=== PATIENT | female | born 1940 | race Caucasian/White ===

== ENCOUNTER 2016-03-02 01:17 | Emergency (ER) | payer MEDICARE ==
--- NOTE | 2016-03-02 01:57 | ED.PDOC ---
History of Present Illness - General Chief Complaint: GI Problem Stated Complaint: constipation Time Seen by Provider: 03/02/16 01:44 Information Source: patient, RN notes reviewed, Vital Signs reviewed Exam Limitations: no limitations - History of Present Illness Initial Comments: This 75 y/o female has not had a bowel movement in 7 days. She has very hard stool and has had to manually remove it. She feels like she did when she had a small bowel obstruction a month ago, except worse. She is having severe abdominal pain. She is unable to describe the quality. Additionally, Patient has not taken her Plavix because she has run out of it and has not felt like going to pick it up at the pharmacy. Abdominal Pain Onset Location: generalized abdomen Pain Radiation: no radiation Quality: severe, waxing/waning Timing/Duration: 1 week, getting worse Improving Factors: nothing Worsening Factors: nothing Associated Symptoms: back pain Review of Systems - Review of Systems Constitutional: States: no symptoms reported EENTM: States: no symptoms reported Respiratory: States: no symptoms reported Cardiology: States: no symptoms reported Gastrointestinal/Abdominal: States: abdominal pain, constipation Genitourinary: States: no symptoms reported Musculoskeletal: States: muscle pain, muscle stiffness Skin: States: no symptoms reported Neurological: States: no symptoms reported Endocrine: States: no symptoms reported Hematologic/Lymphatic: States: no symptoms reported All other Systems: Reviewed and Negative Past Medical History (General) - Patient Medical History Hx Cardiac Disorders: Yes - STENTS IN HEART,, Hx Congestive Heart Failure: No Hx Hypertension: Yes Hx Diabetes: No Hx Gastroesophageal Reflux: - diverticuli Hx Cancer: Yes - BONE Surgical History: Hysterectomy - Vaccination History Hx Tetanus, Diphtheria Vaccination: No Hx Influenza Vaccination: Yes Hx Pneumococcal Vaccination: Yes - Social History Hx Tobacco Use: No Hx Chewing Tobacco Use: No Hx Alcohol Use: No Hx Substance Use: No Hx Substance Use Treatment: No Hx Depression: No Feels Threatened In Home Enviroment: No Feels Threatened In a Relationship: No Hx Physical Abuse: No Hx Emotional Abuse: No Hx Suspected Abuse: No - Female History Patient is a Female of Child Bearing Age (10 -59 yrs old): No Patient : No Family Medical History - Family History Mother Family History: Unknown Living Status: Unknown Physical Exam - Physical Exam General Appearance: Alert, Anxious, Obvious distress, Unkempt Eyes, Ears, Nose, Throat Exam: normal ENT inspection Respiratory: lungs clear, normal breath sounds, no respiratory distress, no accessory muscle use Cardiovascular/Chest: regular rate, rhythm, no edema, no gallop, no murmur Gastrointestinal/Abdominal: soft, no organomegaly, no pulsatile mass, abnormal bowel sounds - decreased, tenderness - generalized Rectal Exam: normal exam, normal rectal tone, other - no stool impaction Back Exam: no vertebral tenderness Extremity: normal range of motion Neurologic: alert, normal mood/affect, oriented x 3 Skin Exam: normal color, warm/dry Lymphatic: no adenopathy Progress - Progress Progress: 03/02/16 04:12 Patient was given a Fleets Enema with minimal response. She will be give Magnesium citrate. She is to follow up with her PCP if symptoms persist or ED if symptoms worsen. - Results/Orders Results/Orders: 03/02/16 03/02/16 01:26 03:13 Temperature 97.3 F L Pulse Rate [ 82 83 right] Respiratory 18 18 Rate Blood Pressure 115/66 158/73 [right] O2 Sat by Pulse 96 95 Oximetry 03/02/16 02:00 Hold Metformin x 48Hrs [id number] Laboratory Results WBC 8.9 K/mm3 (4.8-10.8) 03/02/16 02:10 RBC 4.37 M/mm3 (4.20-5.40) 03/02/16 02:10 Hgb 12.0 gm/dL (12.0-16.0) 03/02/16 02:10 Hct 37.3 % (36.0-47.0) 03/02/16 02:10 MCV 85.4 fl (81.0-99.0) 03/02/16 02:10 MCH 27.5 pg (27.0-31.0) 03/02/16 02:10 MCHC 32.2 g/dL (33.0-37.0) L 03/02/16 02:10 RDW 15.2 % (11.5-14.5) H 03/02/16 02:10 Plt Count 293 K/mm3 (130-400) 03/02/16 02:10 MPV 8.6 fl (7.40-10.4) 03/02/16 02:10 Absolute Neuts (auto) 6.70 K/uL (1.8-6.8) 03/02/16 02:10 Absolute Lymphs (auto) 1.50 K/uL (1.0-3.4) 03/02/16 02:10 Absolute Monos (auto) 0.50 K/uL (0.2-0.8) 03/02/16 02:10 Absolute Eos (auto) 0.10 K/uL (0.0-0.4) 03/02/16 02:10 Absolute Basos (auto) 0.10 K/uL (0.0-0.1) 03/02/16 02:10 Neutrophils % 75.7 % (42.0-78.0) 03/02/16 02:10 Lymphocytes % 17.2 % (20.0-50.0) L 03/02/16 02:10 Monocytes % 5.4 % (2.0-9.0) 03/02/16 02:10 Eosinophils % 0.7 % (1.0-5.0) L 03/02/16 02:10 Basophils % 1.0 % (0.0-2.0) 03/02/16 02:10 Sodium 139 mmol/L (135-145) 03/02/16 02:10 Potassium 4.1 mmol/L (3.6-5.0) 03/02/16 02:10 Chloride 105 mmol/L (101-111) 03/02/16 02:10 Carbon Dioxide 26 mmol/L (21-31) 03/02/16 02:10 Anion Gap 12.1 (12-18) 03/02/16 02:10 BUN 23 mg/dL (7-18) H 03/02/16 02:10 Creatinine 1.26 mg/dL (0.6-1.3) 03/02/16 02:10 BUN/Creatinine Ratio 18.3 (10-20) 03/02/16 02:10 Random Glucose 116 mg/dL (70-105) H 03/02/16 02:10 Serum Osmolality 282.2 mOsm/L (275-295) 03/02/16 02:10 Calcium 8.9 mg/dL (8.4-10.2) 03/02/16 02:10 Total Bilirubin 0.7 mg/dL (0.2-1.0) 03/02/16 02:10 AST 28 IU/L (10-42) 03/02/16 02:10 ALT 32 IU/L (10-60) 03/02/16 02:10 Alkaline Phosphatase 115 IU/L (42-121) 03/02/16 02:10 Serum Total Protein 7.7 gm/dL (6.4-8.2) 03/02/16 02:10 Albumin 4.3 g/dl (3.2-5.5) 03/02/16 02:10 Globulin 3.4 gm/dL (2.3-3.5) 03/02/16 02:10 Albumin/Globulin Ratio 1.3 (1.1-1.9) 03/02/16 02:10 Urine Color Yellow (Yellow) 03/02/16 02:20 Urine Appearance Clear (Clear) 03/02/16 02:20 Urine pH 6.0 (4.5-7.8) 03/02/16 02:20 Ur Specific [place] 1.025 (1.005-1.030) 03/02/16 02:20 Urine Protein Trace mg/dL 03/02/16 02:20 Urine Glucose (UA) Negative mg/dL (Negative) 03/02/16 02:20 Urine Ketones 40 mg/dL (NEGATIVE) H 03/02/16 02:20 Urine Blood Negative (Negative) 03/02/16 02:20 Urine Nitrite Negative 03/02/16 02:20 Urine Bilirubin Small (NEGATIVE) H 03/02/16 02:20 Urine Urobilinogen 0.2 mg/dL (0.2-1.0) 03/02/16 02:20 Ur Leukocyte Esterase Negative (Negative) 03/02/16 02:20 Urine RBC 0 /hpf 03/02/16 02:20 Urine WBC 1-3 /hpf 03/02/16 02:20 Ur Epithelial Cells 5-10 /hpf 03/02/16 02:20 Urine Bacteria Rare 03/02/16 02:20 Hyaline Casts 20-30 /lpf 03/02/16 02:20 Urine Mucus Small 03/02/16 02:20 - EKG/XRAY/CT CT: Abd/Pelvis: No obstruction CT Ordered: Yes CT Interpretation Call Back: No - Report sent CT Interpretation Call Back Date: 03/02/16 CT Interpretation Call Back Time: 03:00 Departure - Departure Clinical Impression: Constipation Qualifiers: Constipation type: unspecified constipation type Qualifier Code: (K59.00) Constipation, unspecified Time of Disposition: 04:14 Disposition: Discharge to Home or Self Care Condition: Fair Departure Forms: ED Discharge - Pt. Copy, Patient Portal Self Enrollment Instructions: Constipation, DI for Constipation Diet: other - high fiber diet Home Medications: Ambulatory Orders Clopidogrel Bisulfate [Plavix] 75 mg PO DAILY 08/01/14
--- NOTE | 2016-03-02 02:58 | CT ---
EXAM DESCRIPTION: CT ABDOMEN PELVIS WITH IV CONTRAST 03/02/2016 2:43 AM CLINICAL HISTORY: 75 y/o , F, abdominal pain COMPARISON: CT abdomen and pelvis with contrast January 31, 2016 TECHNIQUE: Following the administration of intravenous contrast, volumetric CT acquisition was performed through the abdomen and pelvis. Images in the axial and coronal planes were presented for interpretation FINDINGS: The visualized portions of the lung bases are clear. The cardiomediastinal structures are within normal limits. Within the upper abdomen, the liver and spleen are normal in size and morphology. The gallbladder is surgically absent. The intra/extrahepatic biliary tree is normal in appearance. The pancreas and adrenal glands are normal. The right kidney is normal in size. The right ureter is normal in course and caliber. There is a 1.6 cm cyst along the lower pole of the right kidney as well as a 8 mm cyst. There are no right renal calculi are distal obstructing stones. The left kidney is normal in size. The left ureter is normal in course and caliber. There are no left renal calculi or distal obstructing stones. There is no evidence of hydronephrosis/ hydroureter. The stomach and small intestines are within normal limits without evidence of bowel dilation or wall thickening. The appendix is well visualized and normal, best seen on axial image 70 posterior to the cecum. The colon is stool filled and unremarkable. There is laxity of the pelvic floor musculature with downward displacement of the bladder and rectum by a up to 4 cm below the level of the pubococcygeal line. The bladder and rectum are otherwise stable in appearance. The uterus and ovaries are surgically absent. There are no pathologically enlarged inguinal, retroperitoneal, portacaval, or mesenteric lymph nodes. The soft tissue structures of the abdominal wall are normal. There are multilevel degenerative changes throughout the lumbar spine, most pronounced at the L5/S1 level with disc space narrowing and facet hypertrophy. There is left proximal femoral fixation hardware noted. There are moderate vascular calcifications throughout the abdominal aorta and its primary branches. Limited evaluation of the venous structures demonstrates no gross abnormalities. IMPRESSION: 1. No acute intra-abdominal process or evidence of residual bowel obstruction. 2. Status post cholecystectomy and hysterectomy. 3. Stable bladder and rectal prolapse. 4. Degenerative changes of the lumbar spine. Electronically signed by: Alice Mason MD 03/02/2016 02:55
[2016-03-02 03:14] VITALS: O2SAT 95
[2016-03-02] MEDS ORDERED: SODIUM PHOS/BIPHOS ENEMA ADULT 133 ML BTTL PR ONE (03:16)
[2016-03-02] MEDS ORDERED: MAGNESIUM CITRATE 300 ML BTTL ONE (04:05)
[2016-03-02] MEDS ORDERED: CLOPIDOGREL 75 MG TAB PO ONE (04:09)
[2016-03-02] MEDS ORDERED: MAGNESIUM CITRATE 300 ML BTTL PO ONE (04:10)
[2016-03-02 04:30] VITALS: BP 128/79; TEMP 98.1
== END 2016-03-02 04:30 | disposition home or self-care (01) ==
LOC: ER 01:17
DX: K59.00 Constipation, unspecified (principal); I10 Essential (primary) hypertension; Z85.830 Personal history of malignant neoplasm of bone; K57.90 Diverticulosis of intestine, part unspecified, without perforation or abscess without bleeding; Z79.02 Long term (current) use of antithrombotics/antiplatelets; Z79.82 Long term (current) use of aspirin; Z79.899 Other long term (current) drug therapy

== ENCOUNTER 2017-08-11 20:02 | Emergency (ER) | payer MEDICARE, MEDICAID ==
[2017-08-11] MEDS ORDERED: ASPIRIN TABLET 325 MG TAB PO ONE (20:34)
[2017-08-11 20:36] VITALS: O2SAT 97
--- NOTE | 2017-08-11 20:51 | RAD ---
EXAM DESCRIPTION: Chest,1 View CLINICAL HISTORY:77 years Female, chest pain Comparison: None FINDINGS: No focal lung consolidation. Atherosclerotic vascular calcifications. No pleural effusion. No pneumothorax. Cardiac and mediastinal silhouette is unremarkable. No acute osseous abnormality. Soft tissues are unremarkable. IMPRESSION: No acute findings. No focal lung consolidation. Electronically signed by: Carlos Antonio MD 08/11/2017 8:50 PM CDT
--- NOTE | 2017-08-12 02:26 | ED.PDOC ---
History of Present Illness - General Chief Complaint: Chest Pain/OH Stated Complaint: Chest Pain Time Seen by Provider: 08/11/17 20:23 Source: patient, family Exam Limitations: no limitations - History of Present Illness Initial Comments: the patient is a 77-year-old female presenting to the emergency room with her daughter secondary to back pain and abdominal pain as well as some chest pain and generalized weakness that has been going on for about a year. The patient apparently has a history of lymphoma distantly. She also has a history of significant peripheral arterial disease and some known coronary artery disease. The chest pain. To be a more diffuse type chest pain or other than a central chest pain. It is not severely worse with movement. It is not worse with lying back or sitting forward. She is actually not having any chest pain at the moment. She did have some little while ago. Her daughter brought her appear due to this isn't her chronic back pain. Patient has known peripheral arterial disease of the left leg. 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 It appears she has some left lower extremity sciatica.additionally appears that today is the first time that the daughter has actually seen the mother in 2 years.additionally the patient and her daughter report that only hydrocodone works for her pain that the tramadol and codeine did not. Timing/Duration: unsure Severity: mild Improving Factors: nothing Worsening Factors: nothing Allergies/Adverse Reactions: Allergies Codeine Adverse Reaction (Mild, Verified 08/11/17 20:38) Vomitting Ketorolac Tromethamine [From Toradol] Adverse Reaction (Mild, Verified 08/11/17 20:38) Vomitting Home Medications: Ambulatory Orders Clopidogrel Bisulfate [Plavix] 75 mg PO DAILY 08/01/14 predniSONE [Prednisone] 20 mg PO DAILY #5 tab 08/12/17 Review of Systems - Review of Systems Constitutional: States: malaise, weakness - generalized EENTM: States: no symptoms reported Respiratory: States: no symptoms reported Cardiology: States: chest pain Gastrointestinal/Abdominal: States: abdominal pain, nausea Genitourinary: States: no symptoms reported Musculoskeletal: States: see HPI Skin: States: no symptoms reported Neurological: States: anxiety, paresthesia Endocrine: States: no symptoms reported All other Systems: No Change from Baseline Past Medical History (General) - Patient Medical History Hx Seizures: No Hx Stroke: No Hx Dementia: No Hx Asthma: No Hx of COPD: No Hx Cardiac Disorders: Yes - Hx of cardiac stents Hx Congestive Heart Failure: No Hx Pacemaker: No Hx Hypertension: Yes Hx Thyroid Disease: No Hx Diabetes: No Hx Gastroesophageal Reflux: Yes Hx Renal Disease: No Hx Cancer: Yes - lymphoma Hx of HIV: No Hx Hepatitis C: No Hx MRSA: No Surgical History: cancer surgery, cholecystectomy, Hysterectomy - Vaccination History Hx Tetanus, Diphtheria Vaccination: No - Unknown Hx Influenza Vaccination: Yes Hx Pneumococcal Vaccination: Yes Immunizations Up to Date: No - Social History Hx Tobacco Use: No Hx Chewing Tobacco Use: No Hx Alcohol Use: No Hx Substance Use: No Hx Substance Use Treatment: No Hx Depression: Yes - Unsure of depression medication taking Feels Threatened In Home Enviroment: No Feels Threatened In a Relationship: No Hx Physical Abuse: No Hx Emotional Abuse: No Hx Suspected Abuse: No - Activities of Daily Living Hospice Agency (if applicable):: None - Female History Patient is a Female of Child Bearing Age (10 -59 yrs old): No Patient : No - Triage Comment ED Triage Comment: Pt states that she has been having intermittent chest pain x2 days. Pt also complains of abdominal pain and swelling. Pt's daughter states that she was seen in the clinic today and was scheduled for a cardiac work up tomorrow but was told to come to the ER should she have any chest pain before then. Family Medical History - Family History Mother Family History: Unknown Living Status: Unknown Physical Exam - Physical Exam General Appearance: Alert, Anxious, No apparent distress Eye Exam: bilateral normal Ears, Nose, Throat: normal ENT inspection, normal pharynx Neck: non-tender, supple Respiratory: lungs clear, normal breath sounds, no respiratory distress, no accessory muscle use Cardiovascular/Chest: normal peripheral pulses, no edema, tachycardia - mild Peripheral Pulses: radial,right: 2+, radial,left: 2+, dorsalis pedis,right: 1+, dorsalis pedis,left: 1+ Gastrointestinal/Abdominal: non tender, soft Rectal Exam: deferred Back Exam: normal inspection, no CVA tenderness Extremity: normal range of motion, non-tender, normal inspection, no pedal edema , normal capillary refill Neurologic: stippler II-XII nml as tested, alert, normal mood/affect, oriented x 3 Skin Exam: normal color Progress - Progress Progress: 08/12/17 02:30 the patient is a 77-year-old female brought in by her daughter secondary to symptoms of generalized progressive pain and weakness over the last year. Repeat cardiac and muscle enzymes are negative. EKG fails show definitive evidence of acute ischemia. The patient does have significant DJD of the lumbar spine that seems to be causing the bulk of her discomfort. She does need to follow up with her primary care doctor for continuation of workup and treatment for this. She needs to keep herself well hydrated. The patient may be a candidate for rehabilitation for generalized deconditioning. She needs to keep follow-up with her primary care doctor early next week. I am going to write the patient for 5 days of oral prednisone to help reduce inflammation of her low back. She is receiving the first dose tonight. - Results/Orders Results/Orders: Laboratory Tests 08/11/17 08/11/17 08/11/17 20:33 20:47 20:52 WBC 11.2 H RBC 4.96 Hgb 13.2 Hct 40.1 MCV 80.9 L MCH 26.5 L MCHC 32.8 L RDW 14.3 Plt Count 336 MPV 7.7 Absolute Neuts (auto) 8.90 H Absolute Lymphs (auto) 1.40 Absolute Monos (auto) 0.70 Absolute Eos (auto) 0.10 Absolute Basos (auto) 0.10 Neutrophils % 79.4 H Lymphocytes % 12.8 L Monocytes % 5.9 Eosinophils % 1.0 Basophils % 0.9 PT INR PTT (SP) D-Dimer, Quantitative Sodium 137 Potassium 3.6 Chloride 103 Carbon Dioxide 27 Anion Gap 10.6 L BUN 21 H Creatinine 1.27 BUN/Creatinine Ratio 16.5 Random Glucose 137 H Serum Osmolality 278.9 Lactic Acid Calcium 9.1 Magnesium 1.9 Total Bilirubin 0.4 AST 18 ALT 15 Alkaline Phosphatase 84 Creatine Kinase 33 CK-MB (CK-2) 0.7 CK-MB (CK-2) % Not Reportable Troponin I < 0.02 B-Natriuretic Peptide 14.9 Serum Total Protein 7.0 Albumin 3.9 Globulin 3.1 Albumin/Globulin Ratio 1.3 Amylase 82 TSH 3.94 Urine Color Urine Appearance Urine pH Ur Specific [place] Urine Protein Urine Glucose (UA) Urine Ketones Urine Blood Urine Nitrite Urine Bilirubin Urine Urobilinogen Ur Leukocyte Esterase Urine RBC Urine WBC Ur Epithelial Cells Urine Bacteria Urine Mucus Urine Opiates Screen Negative Urine Barbiturates Negative Ur Phencyclidine Scrn Negative U Amphetamin/Meth Scrn Negative U Benzodiazepines Scrn Positive H U Cocaine Metab Screen Negative U Cannabinoids Screen Negative 08/11/17 08/11/17 08/11/17 20:52 20:52 23:15 WBC RBC Hgb Hct MCV MCH MCHC RDW Plt Count MPV Absolute Neuts (auto) Absolute Lymphs (auto) Absolute Monos (auto) Absolute Eos (auto) Absolute Basos (auto) Neutrophils % Lymphocytes % Monocytes % Eosinophils % Basophils % PT 9.3 INR 0.93 PTT (SP) 21.9 D-Dimer, Quantitative 0.54 H* Sodium Potassium Chloride Carbon Dioxide Anion Gap BUN Creatinine BUN/Creatinine Ratio Random Glucose Serum Osmolality Lactic Acid 2.1 Calcium Magnesium Total Bilirubin AST ALT Alkaline Phosphatase Creatine Kinase CK-MB (CK-2) CK-MB (CK-2) % Troponin I B-Natriuretic Peptide Serum Total Protein Albumin Globulin Albumin/Globulin Ratio Amylase TSH Urine Color Yellow Urine Appearance Clear Urine pH 5.5 Ur Specific [place] >= 1.030 Urine Protein Trace Urine Glucose (UA) Negative Urine Ketones Negative Urine Blood Negative Urine Nitrite Negative Urine Bilirubin Negative Urine Urobilinogen 0.2 Ur Leukocyte Esterase Trace H Urine RBC 1-3 Urine WBC 3-5 H Ur Epithelial Cells 1-3 Urine Bacteria 2+ H Urine Mucus Moderate Urine Opiates Screen Urine Barbiturates Ur Phencyclidine Scrn U Amphetamin/Meth Scrn U Benzodiazepines Scrn U Cocaine Metab Screen U Cannabinoids Screen 08/12/17 00:58 WBC RBC Hgb Hct MCV MCH MCHC RDW Plt Count MPV Absolute Neuts (auto) Absolute Lymphs (auto) Absolute Monos (auto) Absolute Eos (auto) Absolute Basos (auto) Neutrophils % Lymphocytes % Monocytes % Eosinophils % Basophils % PT INR PTT (SP) D-Dimer, Quantitative Sodium Potassium Chloride Carbon Dioxide Anion Gap BUN Creatinine BUN/Creatinine Ratio Random Glucose Serum Osmolality Lactic Acid Calcium Magnesium Total Bilirubin AST ALT Alkaline Phosphatase Creatine Kinase 27 CK-MB (CK-2) 0.7 CK-MB (CK-2) % Not Reportable Troponin I < 0.02 B-Natriuretic Peptide Serum Total Protein Albumin Globulin Albumin/Globulin Ratio Amylase TSH Urine Color Urine Appearance Urine pH Ur Specific [place] Urine Protein Urine Glucose (UA) Urine Ketones Urine Blood Urine Nitrite Urine Bilirubin Urine Urobilinogen Ur Leukocyte Esterase Urine RBC Urine WBC Ur Epithelial Cells Urine Bacteria Urine Mucus Urine Opiates Screen Urine Barbiturates Ur Phencyclidine Scrn U Amphetamin/Meth Scrn U Benzodiazepines Scrn U Cocaine Metab Screen U Cannabinoids Screen chest x-ray shows no evidence of acute pathology. EKG shows sinus tachycardia at 111 beats a minute. Q wave in lead 3. Inverted T wave in V2. Normal QT interval. Departure - Departure Clinical Impression: Chronic low back pain with left-sided sciatica Qualifiers: Back pain laterality: left Qualified Code(s): M54.42 - Lumbago with sciatica, left side; G89.29 - Other chronic pain Disposition: Discharge to Home or Self Care Condition: Fair Departure Forms: ED Discharge - Pt. Copy, Patient Portal Self Enrollment Instructions: DI for Atypical Chest Pain Diet: regular diet Activity: increase activity as tolerated Prescriptions: predniSONE [Prednisone] 20 mg PO DAILY #5 tab Home Medications: Ambulatory Orders Clopidogrel Bisulfate [Plavix] 75 mg PO DAILY 08/01/14 predniSONE [Prednisone] 20 mg PO DAILY #5 tab 08/12/17 Additional Instructions: the patient is a 77-year-old female brought in by her daughter secondary to symptoms of generalized progressive pain and weakness over the last year. Repeat cardiac and muscle enzymes are negative. EKG fails show definitive evidence of acute ischemia. The patient does have significant DJD of the lumbar spine that seems to be causing the bulk of her discomfort. She does need to follow up with her primary care doctor for continuation of workup and treatment for this. She needs to keep herself well hydrated. The patient may be a candidate for rehabilitation for generalized deconditioning. She needs to keep follow-up with her primary care doctor early next week. I am going to write the patient for 5 days of oral prednisone to help reduce inflammation of her low back. She is receiving the first dose tonight.
[2017-08-12] MEDS ORDERED: predniSONE 20 MG TAB PO ONE (02:35)
[2017-08-12] MEDS ORDERED: CYCLOBENZAPRINE HCL 10 MG TAB PO ONE (02:35)
[2017-08-12 02:46] VITALS: BP 123/72; TEMP 97.5
== END 2017-08-12 02:50 | disposition home or self-care (01) ==
LOC: ER 20:02
DX: M54.42 Lumbago with sciatica, left side (principal); G89.29 Other chronic pain; R07.9 Chest pain, unspecified; R00.0 Tachycardia, unspecified; R10.9 Unspecified abdominal pain; R53.1 Weakness; F32.9 Major depressive disorder, single episode, unspecified; I10 Essential (primary) hypertension; K21.9 Gastro-esophageal reflux disease without esophagitis; Z95.5 Presence of coronary angioplasty implant and graft; Z90.49 Acquired absence of other specified parts of digestive tract; Z85.72 Personal history of non-Hodgkin lymphomas; Z88.8 Allergy status to other drugs, medicaments and biological substances; Z88.5 Allergy status to narcotic agent; Z79.899 Other long term (current) drug therapy
CPT/HCPCS: 36415; 71045; 80053; 80307; 81001; 82150; 82550; 82553; 83605; 83735; 83880; 84443; 84484; 85025; 85379; 85610; 85730; 93005; J7512

== ENCOUNTER 2020-01-12 14:10 | Emergency (ER) | payer MEDICARE, MEDICAID ==
[2020-01-12] MEDS ORDERED: MORPHINE SULFATE INJ 10 MG/ML VIAL IV ONE (14:21)
[2020-01-12] MEDS ORDERED: ONDANSETRON INJ 4 MG/2 ML VIAL IV ONE (14:21)
--- NOTE | 2020-01-12 14:26 | ED.PDOC ---
History of Present Illness - General Time Seen by Provider: 01/12/20 14:13 Source: patient, RN notes reviewed, Vital Signs reviewed, old records Exam Limitations: other - Pt is a poor historian - History of Present Illness Initial Comments: Pt is a 79 yo female with PMH of dementia, CAD and peripheral vascular disease who presents to ED for 1 week h/o worsening left leg pain from the left knee to left foot. Pain became worse today so called EMS to come to ED for evaluation. Pt reports PAD of LLE that has had to be "cleaned out 3 times" by Dr. Sesay in [place]. She denies any recent fall or trauma. Allergies/Adverse Reactions: Allergies NO KNOWN ALLERGY Allergy (Verified 01/12/20 15:15) Home Medications: Ambulatory Orders Clopidogrel Bisulfate [Plavix] 75 mg PO DAILY 08/01/14 predniSONE [Prednisone] 20 mg PO DAILY #5 tab 08/12/17 Review of Systems - Review of Systems Constitutional: Denies: chills, fever EENTM: Denies: nose congestion, throat pain Respiratory: Denies: cough, short of breath Cardiology: Denies: chest pain, edema, palpitations Gastrointestinal/Abdominal: Denies: abdominal pain, diarrhea, nausea Genitourinary: Denies: dysuria Musculoskeletal: States: see HPI Skin: States: change in color - blue discoloration to left foot Neurological: Denies: headache All other Systems: Reviewed and Negative Past Medical History (General) - Patient Medical History Hx Seizures: No Hx Stroke: No Hx Dementia: No Hx Asthma: No Hx of COPD: No Hx Cardiac Disorders: Yes - Hx of cardiac stents Hx Congestive Heart Failure: No Hx Pacemaker: No Hx Hypertension: Yes Hx Thyroid Disease: No Hx Diabetes: No Hx Gastroesophageal Reflux: Yes Hx Renal Disease: No Hx Cancer: Yes - lymphoma Hx of HIV: No Hx Hepatitis C: No Hx MRSA: No - Vaccination History Hx Tetanus, Diphtheria Vaccination: No - Unknown Hx Influenza Vaccination: Yes Hx Pneumococcal Vaccination: Yes - Social History Hx Tobacco Use: No Hx Chewing Tobacco Use: No Hx Alcohol Use: No Hx Substance Use: No Hx Substance Use Treatment: No Hx Depression: Yes - Unsure of depression medication taking Hx Physical Abuse: No Hx Emotional Abuse: No Hx Suspected Abuse: No - Female History Patient : No Family Medical History - Family History Mother Family History: Unknown Living Status: Unknown Physical Exam - Physical Exam General Appearance: Alert, Other - Mild distress due to pain Neck: non-tender, full range of motion, supple Cardiovascular/Respiratory: regular rate, rhythm, normal breath sounds, no respiratory distress Gastrointestinal/Abdominal: non-tender, no hernia Thigh/Hip: normal inspection, non-tender Leg: normal inspection, non-tender Knee: normal inspection, non-tender, no evidence of injury Mental Status: alert Comments: The left foot has a blueish discoloration to the midfoot and toes. Faint DP pulse palpated. Unable to palpate posterior tibial pulse. No calf tenderness. Progress - Progress Progress: 01/12/20 15:21 D/W radiology. Pt GFR is 24, too low for IV contrast. Unable to get CT with contrast. US not available at this facility at this time. 01/12/20 15:41 Unable to fing left DP or PT pulse with bedside US. We are unable to get CTA LLE due to low GFR and US is unavailble. Will plan to transfer for additional testing and treatment of peripheral arterial occlusion of LLE. Will start Heparin. Son is at bedside and last had surgery for PAD of LLE for similar symptoms [address] Sesay at [place]. He states her pain has been increasing over the past week and noticed blueish colored foot past 2 days. He is usually able to palpate a pulse in left foot, but was unable to today so called EMS. 01/12/20 17:26 Multiple facilities contacted in area that have no capacity. I d/w Dr. Knight, vascular surgeon in [place] and transfer line will attempt to find bed at [facility] or [facility]. 01/12/20 19:[address] Knight [address] [facility]. Pt and family notified. - Results/Orders Results/Orders: CTA LEFT LEG--->Unable to perform due to CKD 01/12/20 15:46 Heparin Sodium (Porcine) [Heparin Sodium] See Protocol SUBCU PRN PRN 01/12/20 16:00 Heparin Premix [Heparin/D5w 25,000U/500ML] 25,000 units Premix Bag 1 bag IVS PRN Laboratory Results - last 24 hr 01/12/20 01/12/20 01/12/20 14:21 15:10 15:49 WBC 12.6 H RBC 4.34 Hgb 13.1 Hct 38.7 MCV 89.0 MCH 30.1 MCHC 33.8 RDW 15.4 H Plt Count 286 MPV 9.1 Absolute Neuts (auto) 10.70 H Absolute Lymphs (auto) 1.10 Absolute Monos (auto) 0.60 Absolute Eos (auto) 0.00 Absolute Basos (auto) 0.00 Neutrophils % 85.2 H Lymphocytes % 9.1 L Monocytes % 5.1 Eosinophils % 0.2 L Basophils % 0.4 PT 10.6 INR 1.07 PTT (SP) 23.1 Sodium 140 Potassium 4.9 Chloride 106 Carbon Dioxide 16 L Anion Gap 22.9 H BUN 38 H Creatinine 1.88 H BUN/Creatinine Ratio 20.2 H Random Glucose 146 H Serum Osmolality 291.1 Calcium 10.6 H Total Bilirubin 0.7 AST 95 H ALT 49 Alkaline Phosphatase 86 Serum Total Protein 7.6 Albumin 3.8 Globulin 3.8 H Albumin/Globulin Ratio 1.0 L Departure - Departure Clinical Impression: Peripheral artery occlusion, Left leg pain Dementia Qualifiers: Dementia type: unspecified type Dementia behavioral disturbance: without behavioral disturbance Qualified Code(s): F03.90 - Unspecified dementia without behavioral disturbance Chronic kidney disease (CKD) Qualifiers: Chronic kidney disease stage: unspecified stage Qualified Code(s): N18.9 - Chronic kidney disease, unspecified Time of Disposition: 19:02 Disposition: Transfer to Hospital Condition: Fair Referrals: MELY FARRIS IV, MINGLER OPERATOR [Primary Care Provider] - 1-2 Weeks Home Medications: Ambulatory Orders Clopidogrel Bisulfate [Plavix] 75 mg PO DAILY 08/01/14 predniSONE [Prednisone] 20 mg PO DAILY #5 tab 08/12/17 Transfer to Outside Facility - Transfer Information Decision to Transfer Date: 01/12/20 Decision to Transfer Time: 15:44 Reason for Transfer: required specialist not available Accepting Provider:: Dr. Knight Accepting Facility: [facility] [place]
[2020-01-12] MEDS ORDERED: HYDROmorphone HCL INJ 2 MG/ML VIAL IV ONE (15:09)
[2020-01-12] MEDS ORDERED: HEPARIN SODIUM (PORCINE) 5,000 U/ML VIAL IV ONE (15:46)
[2020-01-12] MEDS ORDERED: HEPARIN SODIUM (PORCINE) 5,000 U/ML VIAL SUBCU PRN (15:46)
[2020-01-12] MEDS ORDERED: HEPARIN PREMIX 25,000 UNITS in PREMIX BAG 1 BAG IVS SCH (16:00)
[2020-01-12 19:33] VITALS: BP 137/95; TEMP 95.7; O2SAT 95
== END 2020-01-12 19:33 | disposition short-term general hospital (02) ==
LOC: ER 14:10
DX: I77.9 Disorder of arteries and arterioles, unspecified (principal); F03.90 Unspecified dementia, unspecified severity, without behavioral disturbance, psychotic disturbance, mood disturbance, and anxiety; N18.9 Chronic kidney disease, unspecified; M79.605 Pain in left leg; I73.9 Peripheral vascular disease, unspecified; I12.9 Hypertensive chronic kidney disease with stage 1 through stage 4 chronic kidney disease, or unspecified chronic kidney disease; I25.10 Atherosclerotic heart disease of native coronary artery without angina pectoris; K21.9 Gastro-esophageal reflux disease without esophagitis; F32.9 Major depressive disorder, single episode, unspecified; Z20.828 Contact with and (suspected) exposure to other viral communicable diseases; Z95.5 Presence of coronary angioplasty implant and graft; Z85.72 Personal history of non-Hodgkin lymphomas; Z79.899 Other long term (current) drug therapy; Z79.02 Long term (current) use of antithrombotics/antiplatelets
CPT/HCPCS: 36415; 80053; 85025; 85610; 85730; 87635; J1170; J1644; J2270; J2405

== ENCOUNTER 2020-04-10 18:47 | Inpatient (IN) | payer MEDICARE, MEDICAID ==
--- NOTE | 2020-04-10 19:36 | ED.PDOC ---
History of Present Illness - General Chief Complaint: General Stated Complaint: fall Time Seen by Provider: 04/10/20 19:25 Additional Information: Patient is a 79-year-old female who presents to the ED with chief complaint of fall. Patient lives at home with her son and she indicates that she fell yesterday transferring from her wheelchair to the toilet. Patient in general is poorly ambulatory and does transfers only. When patient fell her son was unable to get her up and patient indicates that 911 was called. However story is a bit unclear because patient fell yesterday per EMS but were called today. Patient denies LOC but does say that she bumped her head. Patient denies any specific pain but indicates that she is weak and has generalized aches. She is unable to be any more specific. Patient denies chest pain or shortness of breath. Patient is an extremely poor historian with slow mentation and history is particularly unclear. - History of Present Illness Allergies/Adverse Reactions: Allergies NO KNOWN ALLERGY Allergy (Verified 04/10/20 22:27) Home Medications: Ambulatory Orders Clopidogrel Bisulfate [Plavix] 75 mg PO DAILY 08/01/14 ARIPiprazole [Abilify] 10 mg PO DAILY 04/10/20 Carvedilol [Coreg] 3.125 mg PO DAILY 04/10/20 Diazepam [Valium] 5 mg PO BID 04/10/20 Furosemide [Lasix] 20 mg PO BID 04/10/20 Gabapentin 300 mg PO Q8H 04/10/20 Insulin Detemir [Levemir] 12 unit SUBCU BEDTIME 04/10/20 Insulin Lispro [HumaLOG] 10 unit SUBCU PRN 04/10/20 Methocarbamol 500 mg PO Q6H 04/10/20 Simvastatin [Zocor] 20 mg PO BEDTIME 04/10/20 Tramadol HCl 50 mg PO Q6H 04/10/20 Venlafaxine HCl [Effexor Xr] 37.5 mg PO DAILY 04/10/20 Zolpidem Tartrate [Ambien] 10 mg PO BEDTIME 04/10/20 busPIRone HCL [Buspar] 5 mg PO TID PRN 04/10/20 Review of Systems - Review of Systems Unable to Obtain Due To: dementia Past Medical History (General) - Patient Medical History Hx Seizures: No Hx Stroke: No Hx Dementia: No Hx Asthma: No Hx of COPD: No Hx Cardiac Disorders: Yes - Hx of cardiac stents Hx Congestive Heart Failure: No Hx Pacemaker: No Hx Hypertension: Yes Hx Thyroid Disease: No Hx Diabetes: No Hx Gastroesophageal Reflux: Yes Hx Renal Disease: No Hx Cancer: Yes - lymphoma Hx of HIV: No Hx Hepatitis C: No Hx MRSA: No - Vaccination History Hx Tetanus, Diphtheria Vaccination: No - Unknown Hx Influenza Vaccination: Yes Hx Pneumococcal Vaccination: Yes - Social History Hx Tobacco Use: No Hx Chewing Tobacco Use: No Hx Alcohol Use: No Hx Substance Use: No Hx Substance Use Treatment: No Hx Depression: Yes - Unsure of depression medication taking Hx Physical Abuse: No Hx Emotional Abuse: No Hx Suspected Abuse: No - Female History Patient : No Family Medical History - Family History Mother Family History: Unknown Living Status: Unknown Physical Exam - Physical Exam General Appearance: Frail, Obese, Unkempt, Other - Generally weak Eye Exam: bilateral other - 2 mm OU, reactive Ears, Nose, Throat: other - Mucous membranes are dry Neck: non-tender Respiratory: chest non-tender, lungs clear, normal breath sounds, no respiratory distress, no accessory muscle use Cardiovascular/Chest: normal peripheral pulses, regular rate, rhythm, no gallop, no JVD, no murmur, other - 1+ bilateral pedal edema Peripheral Pulses: radial,right: 2+, radial,left: 2+ Gastrointestinal/Abdominal: normal bowel sounds, non tender, soft, no organomegaly, no pulsatile mass Back Exam: normal inspection, no CVA tenderness, no vertebral tenderness Extremity: non-tender, other - Patient with left AKA Neurologic: no motor/sensory deficits, other - Cranial nerves II through XII are grossly intact. Patient has slow mentation and she is confused. Patient follows simple commands, Progress - Progress Progress: 04/10/20 19:54 Differential diagnosis includes but is not limited to closed head injury, hip fracture, sepsis, dementia 04/10/20 22:33 EKG: Normal sinus rhythm rate of 79, left axis deviation, normal QRS, nonspecific ST changes, T wave inversions anterior laterally, negative STEMI. EKG is not appreciably changed from August 11, 2017. 04/10/20 22:41 Patient seen and reassessed and she is now more alert and active. Her urine shows a considerable UTI and her chest x-ray is read as possible early pneumonia. Patient is Covid negative and her labs are otherwise unremarkable. Patient does appear generally weak and poorly able to care for self I discussed with Leonardo Severino, hospitalist will hobs admit for medical management. - EKG/XRAY/CT CT Ordered: No CT Interpretation Call Back: No Departure - Departure Clinical Impression: UTI (urinary tract infection) Qualifiers: Urinary tract infection type: site unspecified Hematuria presence: without hematuria Qualified Code(s): N39.0 - Urinary tract infection, site not specified Pneumonia Qualifiers: Pneumonia type: due to unspecified organism Laterality: unspecified laterality Lung location: unspecified part of lung Qualified Code(s): J18.9 - Pneumonia, unspecified organism Fall Qualifiers: Encounter type: initial encounter Qualified Code(s): W19.XXXA - Unspecified fall, initial encounter Altered mental status Qualifiers: Altered mental status type: unspecified Qualified Code(s): R41.82 - Altered mental status, unspecified Time of Disposition: 22:42 Disposition: Discharge to Home or Self Detention Medications: Ambulatory Orders Clopidogrel Bisulfate [Plavix] 75 mg PO DAILY 08/01/14 ARIPiprazole [Abilify] 10 mg PO DAILY 04/10/20 Carvedilol [Coreg] 3.125 mg PO DAILY 04/10/20 Diazepam [Valium] 5 mg PO BID 04/10/20 Furosemide [Lasix] 20 mg PO BID 04/10/20 Gabapentin 300 mg PO Q8H 04/10/20 Insulin Detemir [Levemir] 12 unit SUBCU BEDTIME 04/10/20 Insulin Lispro [HumaLOG] 10 unit SUBCU PRN 04/10/20 Methocarbamol 500 mg PO Q6H 04/10/20 Simvastatin [Zocor] 20 mg PO BEDTIME 04/10/20 Tramadol HCl 50 mg PO Q6H 04/10/20 Venlafaxine HCl [Effexor Xr] 37.5 mg PO DAILY 04/10/20 Zolpidem Tartrate [Ambien] 10 mg PO BEDTIME 04/10/20 busPIRone HCL [Buspar] 5 mg PO TID PRN 04/10/20 Decision To Admit - Decistion To Admit Decision to Admit Reason: Admit from ER Decision to Admit Date: 04/10/20 Decision to Admit Time: 22:42
--- NOTE | 2020-04-10 20:33 | RAD ---
EXAM DESCRIPTION: Chest,1 View 04/10/2020 8:30 PM UNIVERSITY DEMONSTRATOR CLINICAL HISTORY: 79 years, Female, AMS COMPARISON: 08/11/2014 FINDINGS: Single view of the chest was obtained portable. Prior films were compared. Lung volume is slightly decreased. The cardiomediastinal silhouette demonstrate to be unremarkable. The heart is not enlarged. The thoracic aorta is unremarkable. Bilateral increased interstitial densities throughout both lung sinclair could correspond to decreased lung volume, atelectasis versus the possibility of viral pneumonia/Covid 19 pneumonia could be of consideration. There are no pleural effusions. The rest of the soft tissue and bony structures demonstrate to be unremarkable. IMPRESSION: INTERVAL DEVELOPMENT OF BILATERAL INTERSTITIAL DENSITIES THROUGHOUT BOTH LUNG SINCLAIR POSSIBILITY OF INTERSTITIAL VIRAL PNEUMONIA/COVID 19 PNEUMONIA COULD BE OF CONSIDERATION. Electronically signed by: Rick Parikh MD 04/10/2020 8:31 PM UNIVERSITY DEMONSTRATOR
--- NOTE | 2020-04-10 20:34 | RAD ---
EXAM DESCRIPTION: Pelvis 04/10/2020 8:31 PM SENIOR PROGRAM PLANNER CLINICAL HISTORY: 79 years, Female, AMS COMPARISON: None FINDINGS: 1 frontal view of the pelvis was obtained. No areas of acute bony injuries were demonstrated. No gross soft tissue abnormality is identified. There is status post ORIF left hip joint. The pelvic brim is intact. There are no gross intraosseous lesions. No periosteal reaction were seen. Bilateral hip joints demonstrate to be within normal limits. Minimal degenerative changes lower lumbar spine. IMPRESSION: UNREMARKABLE PELVIC BONE. NO EVIDENCE FOR ACUTE BONY INJURIES. Electronically signed by: Rick Parikh MD 04/10/2020 8:32 PM SENIOR PROGRAM PLANNER
--- NOTE | 2020-04-10 20:39 | CT ---
CT BRAIN AND CERVICAL SPINE HISTORY: Trauma. COMPARISON: None. TECHNIQUE: CT scan of the brain and cervical spine was performed without IV contrast. This exam was performed according to our departmental dose-optimization program, which includes automated exposure control, adjustment of the mA and/or kV according to patient size and/or use of iterative reconstruction technique. FINDINGS: BRAIN: There are scattered areas of hypoattenuation within the periventricular white matter, which likely represent chronic microvascular ischemia. No evidence of acute infarction, intracranial hemorrhage, extra-axial fluid collection, or midline shift. No air-fluid levels are seen in the paranasal sinuses to suggest acute sinusitis. No depressed skull fracture. CERVICAL SPINE: No acute cervical fracture or prevertebral soft tissue swelling. There is straightening of the normal cervical lordosis, which may be due to cervical collar, muscle spasm, or patient positioning. There is multilevel degenerative disc disease as well as facet DJD throughout the cervical spine. No high-grade spinal canal stenosis is evident. IMPRESSION: 1. No acute intracranial hemorrhage. 2. No acute fracture or subluxation of the cervical spine. Electronically signed by: Chaitanya Diaz MD 04/10/2020 8:38 PM [facility]
[2020-04-10] MEDS ORDERED: cefTRIAXone SODIUM 1 GM in SODIUM CHL 0.9% 50ML MIN-BAG+ 50 ML IVPB ONE (22:30)
--- NOTE | 2020-04-10 23:01 | HP ---
SUPERVISING PHYSICIAN: Hardy Rosen MD CHIEF COMPLAINT: Fall, confusion. HISTORY OF PRESENT ILLNESS: Ms. Bone is a 79 year-old female patient who presented to the Emergency Room with complaint of a fall. The patient apparently lives with her son at home and in the Emergency Room she reported that she had fallen 24 hours previously while transferring from her wheelchair to a toilet. 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 Her son reports that when the patient fell he was unable to get her up at which time he called 911. It is still unclear whether or not that was the initial fall or if she had a fall the previous day because the patient is a very poor historian and at time of admission to the medical/surgical floor, the patient's son was not present. The patient is mildly confused but denies any loss of consciousness, she does feel she may have bumped her head at some point. She was not complaining of any specific problems other than just generalized weakness. Initial workup in the Emergency Room and her labs showed she had a normal white count of 8,800 without a left shift. Hemoglobin was normal at 12.8 with 39.0 hematocrit. Platelet count was at 421,000. Chemistries showed normal sodium, potassium at 3.4, carbon dioxide 28, anion gap was normal. BUN a little low at 22, creatinine 1.24. Glucose on admission was 106, lactic acid 1.3, calcium and magnesium normal. Liver functions were was negative except for an elevated alkaline phosphatase at 133. Troponin less than 0.02. Urinalysis did show positive nitrites with small amount of leukoesterase. Microscopic revealed 0 RBCs with 30 to 40 WBC. 3 to 5 epithelials, 1+ bacteria. Toxicology screen showed she was positive for benzodiazepines, negative for any significant alcohol or salicylates. Urine culture was sent, she was swabbed for Covid and found to be negative. Blood cultures were collected and she was started on antibiotic coverage with ceftriaxone initially in the Emergency Room. A chest x-ray did reveal bilateral interstitial densities that were seen throughout both lung flowers raising the possibility of interstitial viral pneumonia per radiology interpretation. A 12-lead EKG shows normal sinus rhythm at 79 [id number]. No significant T-waves or T-wave inversions to indicate acute ischemia and essentially unchanged when compared to EKG August 11, 2017. Review of her mediations that were provided showed she may be having some issues with polypharmacy as she was on Valium, Gabapentin, Tramadol, Ambien and Robaxin. Her son reported that he does control her medications. Given the patient's weakness, confusion, concerning findings on x-ray for pneumonia with underlying urinary tract infection with concerns for some confusion related to infectious process, the patient is going to be placed in observation for continual neurological monitoring and further evaluation. She was placed in observation in stable condition. PAST MEDICAL HISTORY: Obtained from previous medical records as the patient is a very poor historian. 1. Diabetes mellitus type 2. 2. Hypertension. 3. Gastroesophageal reflux disease. 4. Lymphoma, unknown type. 5. Depression. 6. Previous myocardial infarction with previous stent placement. PAST SURGICAL HISTORY: 1. Hysterectomy. 2. Cholecystectomy. 3. Left above-knee amputation. 4. Open reduction and internal fixation of left hip 5. Cancer surgery, unknown type. CURRENT MEDICATIONS: 1. BuSpar 5 mg b.i.d. 2. Valium 5 mg b.i.d. 3. Coreg 3.125 mg daily. 4. Abilify 10 mg daily. 5. Levemir 12 units at bedtimes. 6. Gabapentin 300 mg every 8 hours. 7. Lasix 20 mg b.i.d. 8. Sliding scale insulin. 9. Tramadol 50 mg every 6 hours. 10 Zocor 20 mg at bedtime. 11. Robaxin 500 mg every 6 hours. 12. Ambien at bedtime as needed. 13. Effexor XR, 37.5 mg daily. 14. Plavix 75 mg daily. ALLERGIES: No known drug allergies. FAMILY HISTORY: Not obtainable. SOCIAL HISTORY: The patient lives in [place] with her son who apparently is her commercial designer. She has history of alcohol, tobacco or illicit drug use. REVIEW OF SYSTEMS: Unobtainable due to patient's mental status. PHYSICAL EXAMINATION: VITAL SIGNS: Temperature 98.2, pulse 79, blood pressure 132/75, respirations are 18, oxygen saturation 95% on 2-liter nasal cannula at rest. GENERAL: Overall, the patient looks unkept. She is elderly in appearance, frail, and looks to be generalized feeling weak. She is quite sleepy. HEENT: Tympanic membranes are clear bilaterally. Oropharynx is pink with dry mucous membranes. NECK: Supple, non-tender, full range of motion, no jugular venous distention. CHEST: Lung sounds were clear without obvious rhonchi, rales, or wheezes. CARDIOVASCULAR: Regular rate and rhythm without appreciable murmurs, rubs, or gallops. ABDOMEN: Soft, non-tender to palpation, positive bowel sounds. EXTREMITIES: There is a left above-knee amputation. Right lower extremity shows to be without any cyanosis, clubbing, or edema. BACK: Without CVA or vertebral tenderness. No obvious trauma. NEUROLOGIC: Cranial nerves II through XII appear to be grossly intact, although it is difficult to assess due to patient's decreased responsiveness. She has very slow mentation and seems to be confused but will follow some simple commands. There are no obvious neuro or motor deficits noted on exam. SKIN: Warm, pink and dry. LABORATORY: Drug screen showed positive for benzodiazepines. Salicylates, alcohol normal. Urinalysis showed positive nitrites with a small amount of leukoesterase. Microscopic revealed 0 RBCs, 34 WBCs, 3 -5 epithelials, 1+ bacteria. White count 8,800 without a left shift. Hemoglobin 12.8, hematocrit 39.0, platelet count at 421,000. Chemistries showed normal electrolytes except for a low potassium at 3.4. Her creatinine was 1.24, BUN a little elevated at 22, anion gap and carbon dioxide both normal. Glucose 106, lactic acid 1.3, calcium and magnesium normal. Liver functions normal except for a slightly elevated alkaline phosphatase initially on admission of 133. Troponin less than 0.02. MICROBIOLOGY: Urine culture is pending. Covid swab was negative, blood cultures are pending. RADIOLOGY: CT of the cervical spine and hip without any acute findings. Chest x-ray showed inner development of bilateral interstitial density throughout both lung flowers, possibility of interstitial viral pneumonia or Covid-19 could be a consideration compared to x-ray on 08/11/2014 by radiologist. Pelvis x-ray per radiology interpretation showed no evidence of acute bony injuries. Abdominal/pelvic CT with contrast per radiology interpretation showed no acute intraabdominal or pelvic process. ASSESSMENT: 1. Urinary tract infection, cultures pending. 2. Pneumonia, possibly viral but negative for Covid. 3. Altered mental status, etiology unknown, possibly due to polypharmacy versus metabolic secondary to underlying infectious process with urinary tract infection and pneumonia. 4. Same-level fall without any acute injury on exam on radiology studies. 5. Diabetes mellitus type 2. 6. Hypertension. 7. Gastroesophageal reflux disease. 8. Lymphoma, unknown type. 9. Depression. 10. Previous myocardial infarction with stent placement. PLAN: Ms. Bone is going to be admitted for initiation of treatment of antibiotics with azithromycin and Rocephin, both coverage of questionable pneumonia versus urinary tract infection, cultures are pending. Given the fact that she doesn't look like this is a metabolic process, her lactic acid is normal, there are no real indications of sepsis at this point, we will continue with empiric coverage and go ahead and give her some IV fluids to help correct her potassium with D5 half normal saline with 40 of potassium at 80. We will need to review her medications and certainly hold any medication that could cause mental status changes including a review of it, showing to be Valium, Gabapentin, Tramadol, Robaxin and Ambien. I would anticipate her length of stay to be at least 1 to 2 days. We will follow cultures and treat those as appropriate with antibiotics. She will be on neuro checks every 4 hours. At this point, she does not have a Hurtado in place. She is probably going to need some social consultations at some point, I am not sure her son is able to handle her unless she is much more alert. She will certainly need to be closely monitored and her home medications adjusted as appropriate. Again, this may just be polypharmacy with underlying mild urinary tract infection. She will be on Lovenox for DVT prophylaxis as well as we put her on a PPI for gastric protection in the form of Protonix. Until we can transition patient to outpatient management, we will continue to monitor and treat as needed. #[id number] [facility]
[2020-04-11] MEDS ORDERED: DEXTROSE 50% 25 GM/50 ML SYG IV PRN (00:25)
[2020-04-11] MEDS ORDERED: GLUCAGON INJ 1 MG VIAL SUBCU PRN (00:25)
[2020-04-11] MEDS ORDERED: ONDANSETRON INJ 4 MG/2 ML VIAL IV PRN (00:25)
[2020-04-11] MEDS ORDERED: SODIUM CHLORIDE 0.9% (FLUSH) 10 ML SYG IV PRN (00:25)
[2020-04-11] MEDS ORDERED: KCL 20 MEQ/NS 1,000 ML IVS PRN (00:40)
[2020-04-11] MEDS: IV SET AND CAP CHANGE INJ INJ SCH (00:47)
[2020-04-11] MEDS ORDERED: KCL 20 MEQ/NS 1,000 ML IVS ONE (00:49)
[2020-04-11] MEDS: GABAPENTIN 300 MG CAP PO SCH ×2 (00:51→08:45)
[2020-04-11] MEDS ORDERED: traMADol HCL 50 MG TAB PO PRN (05:54)
[2020-04-11] MEDS: INSULIN LISPRO 100 UNITS/ML PEN SUBCU SCH ×4 (07:13→21:12)
[2020-04-11] MEDS ORDERED: CARVEDILOL 3.125 MG TAB ONE (07:49)
[2020-04-11] MEDS ORDERED: cefTRIAXone SODIUM 1 GM VIAL ONE (07:50)
[2020-04-11] MEDS ORDERED: SODIUM CHL 0.9% 50ML MIN-BAG+ 50 ML IVPB ONE (07:50)
[2020-04-11] MEDS: POTASSIUM CHLORIDE 20 MEQ TAB PO ONE ×2 (08:44→11:02)
[2020-04-11] MEDS: ARIPiprazole 5 MG TAB PO SCH (08:44)
[2020-04-11] MEDS: FUROSEMIDE 40 MG TAB PO SCH (08:45)
[2020-04-11] MEDS: CLOPIDOGREL 75 MG TAB PO SCH (08:45)
[2020-04-11] MEDS: CARVEDILOL 3.125 MG TAB PO SCH (08:45)
[2020-04-11] MEDS: VENLAFAXINE XR 75 MG CAP PO SCH (08:46)
[2020-04-11] MEDS: cefTRIAXone SODIUM 1 GM in SODIUM CHL 0.9% 50ML MIN-BAG+ 50 ML IVPB SCH (09:41)
[2020-04-11] MEDS ORDERED: ALBUTEROL SULFATE 2.5 MG/3 ML VIAL NEB SCH (12:00)
[2020-04-11] MEDS ORDERED: AZITHROMYCIN IV 500 MG VIAL IVPB ONE (12:25)
[2020-04-11] MEDS ORDERED: SODIUM CHLORIDE 0.9% 250ML 250 ML ONE (12:25)
[2020-04-11] MEDS ORDERED: ALBUTEROL SULFATE 2.5 MG/3 ML VIAL NEB ONE (12:27)
[2020-04-11] MEDS: KCL 40 MEQ/D5 1/2NS 1,000 ML IVS PRN (12:28)
[2020-04-11] MEDS: AZITHROMYCIN IV 500 MG in SODIUM CHLORIDE 0.9% 250ML 250 ML IVPB SCH (12:28)
--- NOTE | 2020-04-11 13:20 | CT ---
CT abdomen and pelvis with contrast TECHNIQUE: Axial images were taken through the abdomen and pelvis after the administration of IV and oral contrast.All CT scans at this facility use dose modulation, iterative reconstruction, and/or weight based dosing when appropriate to reduce radiation dose to as low as reasonably achievable HISTORY: Elevated Lipase, LUQ pain r/o pancreatitis COMPARISON:None FINDINGS: Lung bases: There are coarse diffuse interstitial changes seen in both left and right lungs likely related to chronic fibrotic changes ABDOMEN: The liver appears unremarkable. There is no evidence for mass or intrahepatic biliary ductal dilatation. The gallbladder has been been surgically removed. There is atrophy of the pancreas. The pancreas is otherwise normal. The adrenal glands and spleen are normal. The kidneys appear unremarkable. There is no evidence for hydronephrosis or stone. Multiple diverticuli seen extending off portions of the descending colon and sigmoid colon, there is no evidence for diverticulitis. There is no bowel obstruction. There is no evidence for acute appendicitis. Pelvis: The aorta is normal in caliber. There is no evidence for pathologically enlarged adenopathy. The bladder appears unremarkable. There is no free air or free fluid Postsurgical changes are seen within the left hip. There are no acute bony or soft tissue abnormalities Impression: No acute intra-abdominal or pelvic process.. Electronically signed by: Manolo Richards MD 04/11/2020 1:18 PM [facility]
[2020-04-11] MEDS: ACETAMINOPHEN 325 MG TAB PO PRN (20:27)
[2020-04-11] MEDS ORDERED: ACETAMINOPHEN 325 MG TAB ONE (20:27)
[2020-04-11] MEDS: SIMVASTATIN 20 MG TAB PO SCH (20:28)
[2020-04-12] MEDS: KCL 40 MEQ/D5 1/2NS 1,000 ML IVS PRN ×2 (01:21→14:06)
[2020-04-12] MEDS: ACETAMINOPHEN 325 MG TAB PO PRN ×2 (04:19→20:06)
[2020-04-12] MEDS ORDERED: ACETAMINOPHEN 325 MG TAB ONE ×2 (04:19→19:01)
[2020-04-12] MEDS: INSULIN LISPRO 100 UNITS/ML PEN SUBCU SCH ×4 (07:14→21:21)
[2020-04-12] MEDS ORDERED: CARVEDILOL 3.125 MG TAB ONE (08:27)
[2020-04-12] MEDS ORDERED: CLOPIDOGREL 75 MG TAB ONE (08:27)
[2020-04-12] MEDS ORDERED: ARIPiprazole 5 MG TAB ONE (08:27)
[2020-04-12] MEDS ORDERED: SODIUM CHL 0.9% 50ML MIN-BAG+ 50 ML IVPB ONE (08:28)
[2020-04-12] MEDS ORDERED: cefTRIAXone SODIUM 1 GM VIAL ONE (08:28)
--- NOTE | 2020-04-12 09:00 | RAD ---
PROCEDURE:XR CHEST 1 VIEW HISTORY:Pneumonia COMPARISON: April 10, 2020 FINDINGS: The heart appears unremarkable. There is improved aeration seen in both the left and right lungs when compared to the prior exam there is some stable mild diffuse increased interstitial changes in both lungs. There is no effusion or pneumothorax. There are no acute bony or soft tissue abnormalities. IMPRESSION: Improving aeration seen in both lungs. Electronically signed by: Manolo Richards MD 04/12/2020 8:58 AM [facility] [employer]
[2020-04-12] MEDS: CARVEDILOL 3.125 MG TAB PO SCH (09:10)
[2020-04-12] MEDS: ARIPiprazole 5 MG TAB PO SCH (09:10)
[2020-04-12] MEDS: CLOPIDOGREL 75 MG TAB PO SCH (09:10)
[2020-04-12] MEDS: cefTRIAXone SODIUM 1 GM in SODIUM CHL 0.9% 50ML MIN-BAG+ 50 ML IVPB SCH (09:11)
[2020-04-12] MEDS: VENLAFAXINE XR 75 MG CAP PO SCH (09:11)
[2020-04-12] MEDS ORDERED: AZITHROMYCIN IV 500 MG VIAL IVPB ONE (13:41)
[2020-04-12] MEDS ORDERED: SODIUM CHLORIDE 0.9% 250ML 250 ML ONE (13:41)
[2020-04-12] MEDS ORDERED: KCL 40 MEQ/D5 1/2NS 1,000 ML IVS ONE ×2 (13:42→18:44)
[2020-04-12] MEDS: AZITHROMYCIN IV 500 MG in SODIUM CHLORIDE 0.9% 250ML 250 ML IVPB SCH (14:06)
--- NOTE | 2020-04-12 14:30 | PN ---
SUPERVISING PHYSICIAN: Hardy Rosen MD DATE: 04/12/20 SUBJECTIVE: The patient is lying in bed. She is very confused. Nursing reports that she has knocked all of her water off of her bedside table. Although at times she does have very brief moments of lucidity, most of her medications that can cause altered mental status have been discontinued. OBJECTIVE: VITAL SIGNS: Temperature 97.3, heart rate 86, blood pressure 138/77, respiratory rate 18, O2 saturation 96% on 2 liters nasal cannula. RESPIRATORY: Essentially clear to auscultation bilaterally. CARDIAC: Regular rate and rhythm. NEUROLOGIC: She is awake and alert, oriented to person only. LABORATORY: WBCs 6,500, hemoglobin 11.2, hematocrit 34.6. Electrolytes are basically within normal limits. MICROBIOLOGY: Preliminary urine cultures show gram negative rods. Preliminary blood culture show no growth after 24 hours. RADIOLOGY: Chest x-ray shows improving aeration seen in both lungs. All other labs and films have been reviewed via the EMR. ASSESSMENT: 1. Urinary tract infection, cultures pending. 2. Pneumonia, possibly viral but negative for COVID. 3. Altered mental status, etiology unknown, possibly due to polypharmacy versus metabolic secondary to underlying infectious process with urinary tract infection and pneumonia. 4. Same-level fall without any acute injury on exam on radiology studies. 5. Diabetes mellitus type 2. 6. Hypertension. 7. Gastroesophageal reflux disease. 8. Lymphoma, unknown type. 9. Depression. 10. Previous myocardial infarction with stent placement. PLAN: We will continue present supportive care. At this point, most of her medications that could cause any altered mental status have been discontinued. I am not sure that she could go home in this condition. She does have a urias catheter and will need to discontinue it in the next 24-36 hours, as indicated. She may need to have those medications, which she may need to go to [facility]. I have ordered labs for in the morning as well as consulted [employer] and maybe Aida Day, KANDIS, can assist us with her placement. Otherwise, we will continue her Rocephin, azithromycin and monitor cultures as they become available. #[id number] [facility]
[2020-04-12] MEDS: VENLAFAXINE HCL TAB 75 MG TAB PO SCH ×3 (15:43→21:22)
[2020-04-12] MEDS ORDERED: SIMVASTATIN 20 MG TAB ONE (18:43)
[2020-04-12] MEDS ORDERED: ONDANSETRON INJ 4 MG/2 ML VIAL ONE (19:22)
[2020-04-12] MEDS: SIMVASTATIN 20 MG TAB PO SCH ×2 (20:05→21:22)
[2020-04-12] MEDS ORDERED: HALOPERIDOL LACTATE INJ 5 MG/ML VIAL IM ONE (22:27)
[2020-04-13] MEDS ORDERED: METOPROLOL TARTRATE INJ 5 MG/5 ML VIAL IV ONE (01:45)
[2020-04-13] MEDS: HALOPERIDOL LACTATE INJ 5 MG/ML VIAL IM PRN ×3 (04:33→21:05)
[2020-04-13] MEDS: KCL 40 MEQ/D5 1/2NS 1,000 ML IVS PRN ×2 (04:57→21:14)
[2020-04-13] MEDS: INSULIN LISPRO 100 UNITS/ML PEN SUBCU SCH ×4 (06:58→20:49)
[2020-04-13] MEDS ORDERED: ARIPiprazole 5 MG TAB ONE (07:23)
[2020-04-13] MEDS ORDERED: CLOPIDOGREL 75 MG TAB ONE (07:23)
[2020-04-13] MEDS ORDERED: cefTRIAXone SODIUM 1 GM VIAL ONE (07:24)
[2020-04-13] MEDS ORDERED: VENLAFAXINE HCL TAB 75 MG TAB ONE (07:24)
[2020-04-13] MEDS ORDERED: SODIUM CHL 0.9% 50ML MIN-BAG+ 50 ML IVPB ONE (07:24)
[2020-04-13] MEDS: cefTRIAXone SODIUM 1 GM in SODIUM CHL 0.9% 50ML MIN-BAG+ 50 ML IVPB SCH (09:25)
[2020-04-13] MEDS: CARVEDILOL 3.125 MG TAB PO SCH ×2 (10:46→20:42)
[2020-04-13] MEDS: ARIPiprazole 5 MG TAB PO SCH (10:46)
[2020-04-13] MEDS: VENLAFAXINE HCL TAB 75 MG TAB PO SCH ×2 (10:47→20:42)
[2020-04-13] MEDS: CLOPIDOGREL 75 MG TAB PO SCH (10:47)
[2020-04-13] MEDS: MORPHINE SULFATE INJ 10 MG/ML VIAL IV PRN ×2 (11:32→20:34)
[2020-04-13] MEDS: AZITHROMYCIN IV 500 MG in SODIUM CHLORIDE 0.9% 250ML 250 ML IVPB SCH (11:45)
--- NOTE | 2020-04-13 12:18 | RAD ---
EXAM DESCRIPTION: Chest,1 View CLINICAL HISTORY: pna COMPARISON: 2020 TECHNIQUE: AP portable chest FINDINGS: Persistent diffuse interstitial lung disease is observed. The heart is at the upper limits of normal in size. Overall aeration of the chest is improved. IMPRESSION: A persistent though improving diffuse interstitial lung disease is observed. This may represent evidence of a atypical pneumonia Electronically signed by: Rick Modi MD 04/13/2020 12:17 PM [employer]
[2020-04-13] MEDS ORDERED: MAGNESIUM SULFATE PREMIX 2GM 2 GM in PREMIX BAG 1 BAG IVPB ONE (12:36)
[2020-04-13] MEDS ORDERED: MAGNESIUM SULFATE PREMIX 2GM 50 ML IVPB ONE (12:47)
--- NOTE | 2020-04-13 13:44 | PN ---
SUPERVISING PHYSICIAN: BRITTON MATTSON MD DATE: 04/13/20 SUBJECTIVE: The patient is lying in bed. It was reported overnight that she became very agitated and her heart rate was up in the 120s. At exam today she was actually able to answer some simple questions. She did say she used her wheelchair and a walker at home. She denied any chest pain, shortness of breath, nausea or vomiting, although she is somewhat tachypneic. She was unable to explain why she was wheezing like she was. OBJECTIVE: VITAL SIGNS: Temperature 97.6, heart rate 103, blood pressure 96/67, respiratory rate 30, O2 saturation 96% on 2 liters nasal cannula. RESPIRATORY: Somewhat diminished throughout. CARDIAC: Regular rate and rhythm. At times, she is slightly tachycardic. ABDOMEN: Soft, nondistended, non-tender, bowel sounds are positive. NEUROLOGIC: She is anxious and slightly agitated. She is oriented to person and place. She can answer some simple yes/no questions appropriately but otherwise a poor historian. LABORATORY: CBC is unremarkable. Her blood sugars have run between 129 and 153. Electrolytes are within normal limits except for her magnesium is slightly low at 1.7. Ammonia is 17. Final urine culture is positive for E. coli and is pansensitive. She is presently on Ceftriaxone. MICROBIOLOGY: Preliminary blood culture show no growth after 48 hours. RADIOLOGY: Chest x-ray shows a persistent but improving diffuse interstitial lung disease observed, may represent evidence of an atypical pneumonia. ASSESSMENT: 1. Urinary tract infection, E. coli pansensitive and presently on Ceftriaxone. 2. Pneumonia, possibly viral but negative for COVID. 3. Altered mental status, etiology unknown, possibly due to polypharmacy versus metabolic secondary to underlying infectious process with urinary tract infection and pneumonia. 4. Same-level fall without any acute injury on exam on radiology studies. 5. Diabetes mellitus type 2. 6. Hypertension. 7. Gastroesophageal reflux disease. 8. Lymphoma, unknown type. 9. Depression. 10. Previous myocardial infarction with stent placement. PLAN: We will continue present supportive care at this point. I have given her some Haldol to help with the agitation and she also has a small amount of Ativan. I would like to hold on that but she has been taking a benzo for quite some time and will have that in case of some withdrawals. At this point, I am not sure what is going on with her. I do feel she may need close followup at discharge and most likely will not be discharged home, at least in the present condition. She may need a group home or some other rehab type facility. Lab has been ordered for in the morning. #[id number] [facility]TDD
[2020-04-13] MEDS ORDERED: LEVALBUTEROL NEBS 1.25 MG/3 ML VIAL NEB PRN (14:58)
[2020-04-13] MEDS ORDERED: diazePAM 2 MG TAB PO ONE (15:05)
[2020-04-13] MEDS: LEVALBUTEROL NEBS 1.25 MG/3 ML VIAL NEB SCH ×2 (16:14→22:35)
[2020-04-13] MEDS: ENOXAPARIN SODIUM 40 MG/0.4 ML SYG SUBCU SCH (20:43)
[2020-04-13] MEDS: SIMVASTATIN 20 MG TAB PO SCH (20:44)
[2020-04-13] MEDS: DEX 5% W/NACL 0.45% 1000ML 1,000 ML IVS PRN (21:26)
[2020-04-14] MEDS: ACETAMINOPHEN 325 MG TAB PO PRN ×2 (00:44→20:43)
[2020-04-14] MEDS: IV SET AND CAP CHANGE INJ INJ SCH (02:03)
[2020-04-14] MEDS: INSULIN LISPRO 100 UNITS/ML PEN SUBCU SCH ×4 (07:51→21:31)
[2020-04-14] MEDS: LEVALBUTEROL NEBS 1.25 MG/3 ML VIAL NEB SCH ×4 (08:54→21:30)
[2020-04-14] MEDS: cefTRIAXone SODIUM 1 GM in SODIUM CHL 0.9% 50ML MIN-BAG+ 50 ML IVPB SCH (09:18)
[2020-04-14] MEDS: VENLAFAXINE HCL TAB 75 MG TAB PO SCH ×2 (09:19→20:44)
[2020-04-14] MEDS: CLOPIDOGREL 75 MG TAB PO SCH (09:19)
[2020-04-14] MEDS: CARVEDILOL 3.125 MG TAB PO SCH ×2 (09:19→20:43)
[2020-04-14] MEDS: ARIPiprazole 5 MG TAB PO SCH (09:19)
[2020-04-14] MEDS: AZITHROMYCIN IV 500 MG in SODIUM CHLORIDE 0.9% 250ML 250 ML IVPB SCH (12:10)
--- NOTE | 2020-04-14 16:18 | PN ---
SUPERVISING PHYSICIAN: Diogenes Ford MD DATE: 04/14/20 SUBJECTIVE: The patient is sitting up in bed. She is actually somewhat more alert today and answers some simple yes/no questions appropriately, but gets confused about going home and is very frustrated that she cannot answer questions or does not know what is going on. I did speak with her son at length today and he is aware that it may not be safe for her to go home at least for some time due to her neuro status. I have recommended she go to the care home at least until after a neurological evaluation. OBJECTIVE: VITAL SIGNS: Temperature 97.5, heart rate 78, blood pressure 93/62, respiratory rate 22, O2 saturation 93% on 4 liters nasal cannula. RESPIRATORY: Essentially clear to auscultation bilaterally. She does have some purse-lipped breathing although her oxygen saturations are in the low 90s. CARDIAC: Regular rate and rhythm. NEUROLOGIC: She is awake, alert, but easily confused and has a difficult time answering questions. LABORATORY: CBC is unremarkable. She had a mixed venous blood gas this morning to see if she was retaining CO2 and her CO2 was normal at 41. Chemistry is unremarkable. All other labs and films have been reviewed via the EMR. ASSESSMENT: 1. Altered mental status, etiology unknown, with periods of tachypnea and pursed lip breathing, as well as alternating periods of confusion and then lucidity. 2. Pneumonia, possibly viral but negative for COVID. 3. Urinary tract infection, Escherichia coli pansensitive and presently on ceftriaxone. 4. Undiagnosed Alzheimer's dementia. 5. Diabetes mellitus, type 2. 6. Hypertension. 7. Gastroesophageal reflux disease. 8. Lymphoma, unknown type. 9. Depression. 10. Previous myocardial infarction with stent placement. 11. Same-level fall without any acute injury on exam on radiology studies PLAN: We will continue present supportive care. I am not sure what is going on with her neurologically, but I will have an MRI for in the morning. We will talk to her son to see his plans for discharge as he was trying to get 24 hour nursing at his home. I will hold on any lab because it is unremarkable at this time. I am not quite sure what is going on with her neurologically. She will need a close followup with her primary care physician as well as a neurologist. We will continue to follow and treat as needed. #[id number] [facility]
[2020-04-14] MEDS: SIMVASTATIN 20 MG TAB PO SCH (20:44)
[2020-04-14] MEDS: ENOXAPARIN SODIUM 40 MG/0.4 ML SYG SUBCU SCH (20:44)
[2020-04-14] MEDS: DEX 5% W/NACL 0.45% 1000ML 1,000 ML IVS PRN (23:43)
[2020-04-15] MEDS: INSULIN LISPRO 100 UNITS/ML PEN SUBCU SCH ×4 (07:58→20:59)
[2020-04-15] MEDS: LEVALBUTEROL NEBS 1.25 MG/3 ML VIAL NEB SCH ×4 (09:00→22:50)
[2020-04-15] MEDS: ARIPiprazole 5 MG TAB PO SCH (09:30)
[2020-04-15] MEDS: CARVEDILOL 3.125 MG TAB PO SCH ×2 (09:32→20:05)
[2020-04-15] MEDS: cefTRIAXone SODIUM 1 GM in SODIUM CHL 0.9% 50ML MIN-BAG+ 50 ML IVPB SCH (09:33)
[2020-04-15] MEDS: CLOPIDOGREL 75 MG TAB PO SCH (09:34)
--- NOTE | 2020-04-15 09:57 | MRI ---
EXAM DESCRIPTION: Brain w/o Contrast: MRI. CLINICAL HISTORY: AMS. COMPARISON: CT scan of head April 10. TECHNIQUE: Multiplanar, high-field MRI unit, multiple diffusion sequences, multiple conventional sequences without contrast. "MR Fast" protocol was used due to patient mental status and body movement. FINDINGS: Confluent hyperintense FLAIR and T2-weighted signal in the periventricular white matter and the bilateral frontal and occipital horns of the ventricles. This is extending into the centrum semiovale bilaterally. Also more focal hyperintense lesions in the subcortical white matter more prevalent on the right in the frontoparietal occipital lobes. No hemorrhage, no cerebral edema, no midline shift.. Old lacunar infarct in the right basal ganglia. Small hyperintense foci bilaterally. No hemorrhage, no cerebral edema, no mass-effect normal signal in the brainstem and cerebellar hemispheres. Concordance of the diffusion and non-diffusion sequences with no diffusion restriction. Cortical sulci, ventricles, and other CSF spaces, and the subdural spaces are physiologic for patient's age with minimal cortical atrophy. No effacement or displacement. No midline shift. No extra-axial hemorrhage. Normal flow signal void in the major vessels of the [place], and the venous sinuses. IACs are symmetric bilaterally. No fluid in the bilateral mastoid air cells. No mass effect in the bilateral cerebellopontine angles. Pituitary gland occupies only the base of the sella. Base of the cerebellar tonsils is at the level of the foramen magnum. Minimal mucoperiosteal thickening in the paranasal sinuses.. The bony calvarium is intact. IMPRESSION: 1. Relatively symmetric white matter involvement periventricular and subcortical regions bilaterally, consistent with cerebral microvascular disease and aging. Old lacunar infarct right basal ganglia. No hemorrhage, no mass effect, no cerebral edema, no diffusion restriction: No subacute or acute infarction. 2. Minimal chronic paranasal sinusitis. Electronically signed by: Brad Orozco MD 04/15/2020 9:55 AM [facility]
[2020-04-15] MEDS ORDERED: FUROSEMIDE INJ 40 MG/4 ML VIAL IV ONE (11:03)
--- NOTE | 2020-04-15 11:28 | RAD ---
EXAM DESCRIPTION: Chest,1 View: CR/DR/XR. CLINICAL HISTORY: 80 years Female increased oxygen demand COMPARISON: Portable chest x-ray April 13 brain MRI today. TECHNIQUE: ONE VIEW PORTABLE. AP 1030 hours, upright position. FINDINGS: Decreased lung volumes bilaterally. Baseline interstitial infiltrate/markings bilaterally, with consolidation and air bronchograms developing in the right lung base. Heart remains enlarged. Pulmonary vascularity not increased. Monitoring leads on the chest. IMPRESSION: Developing infiltrate with air bronchograms in the right lung base could represent bacterial pneumonia. Bilateral interstitial process is stable and could represent pulmonary edema. Electronically signed by: Brad Orozco MD 04/15/2020 11:27 AM [employer]
[2020-04-15] MEDS: AZITHROMYCIN IV 500 MG in SODIUM CHLORIDE 0.9% 250ML 250 ML IVPB SCH (12:00)
[2020-04-15] MEDS: VENLAFAXINE HCL TAB 75 MG TAB PO SCH ×2 (15:36→20:05)
[2020-04-15] MEDS ORDERED: FUROSEMIDE INJ 20 MG/2 ML VIAL IV SCH (17:00)
[2020-04-15] MEDS: SIMVASTATIN 20 MG TAB PO SCH (20:05)
[2020-04-15] MEDS: ENOXAPARIN SODIUM 40 MG/0.4 ML SYG SUBCU SCH (20:06)
[2020-04-16] MEDS ORDERED: PANTOPRAZOLE SODIUM IV 40 MG VIAL ONE (00:23)
[2020-04-16] MEDS: HALOPERIDOL LACTATE INJ 5 MG/ML VIAL IM PRN (02:08)
[2020-04-16] MEDS: PANTOPRAZOLE SODIUM IV 40 MG VIAL IV SCH (06:07)
[2020-04-16] MEDS: INSULIN LISPRO 100 UNITS/ML PEN SUBCU SCH ×4 (07:04→20:59)
--- NOTE | 2020-04-16 08:38 | PN ---
SUPERVISING PHYSICIAN: Diogenes Ford MD DATE: 04/15/20 SUBJECTIVE: The patient is lying up in bed. She is asleep. She awakens easily. Nursing reported that she again has periods of tachypnea with pursed lip breathing and at times, she is very lucid and answers questions appropriately and then other times, she is very confused. She calls nursing staff different names and is unable to answer questions. At this time, she is somewhat lucid although sleepy. She denies any chest pain, nausea or vomiting. OBJECTIVE: VITAL SIGNS: Temperature 97.6, heart rate 97, blood pressure 123/80, respiratory rate 24, O2 saturation 99% on 4 liters nasal cannula. RESPIRATORY: Essentially clear to auscultation bilaterally although she has pursed lip breathing at this time and is somewhat tachypneic. CARDIAC: Regular rate and rhythm. NEUROLOGIC: She is awake, alert, oriented to person and place although has a difficult time answering questions. LABORATORY: Her blood sugars have run between 114 and 128. MICROBIOLOGY: Her final blood cultures show no growth after 5 days. RADIOLOGY: Her brain MRI shows 1) Relatively symmetric white matter involvement, periventricular and subcortical regions bilaterally consistent with cerebral microvascular disease and aging. Old lacunar infarct, right basal ganglia. No hemorrhage, no mass effect, no cerebral edema, no diffuse restriction, no subacute or acute infection. 2) Minimal chronic paranasal sinusitis. Chest x-ray shows developing infiltrate with air bronchograms in the right lung base, could represent bacterial pneumonia. Bilateral interstitial process is stable and could represent pulmonary edema. ASSESSMENT: 1. Altered mental status, etiology unknown, with periods of tachypnea and pursed lip breathing, as well as alternating periods of confusion and then lucidity. 2. Pneumonia, possibly viral but negative for COVID. 3. Urinary tract infection, Escherichia coli pansensitive and presently on ceftriaxone. 4. Undiagnosed Alzheimer's dementia. 5. Diabetes mellitus, type 2. 6. Hypertension. 7. Gastroesophageal reflux disease. 8. Lymphoma, unknown type. 9. Depression. 10. Previous myocardial infarction with stent placement. 11. Same-level fall without any acute injury on exam on radiology studies PLAN: We will continue present supportive care. Her son has okayed a referral to [facility] at this time. Hopefully, she can be discharged in the next 1 to 2 day to [facility] for physical therapy and close followup. I have ordered routine lab for tomorrow. We will continue to monitor closely and follow as needed. #[id number] [facility]
[2020-04-16] MEDS ORDERED: FUROSEMIDE 40 MG TAB ONE ×2 (08:40→19:05)
[2020-04-16] MEDS: CARVEDILOL 3.125 MG TAB PO SCH ×2 (08:55→19:57)
[2020-04-16] MEDS: ARIPiprazole 5 MG TAB PO SCH (08:55)
[2020-04-16] MEDS: VENLAFAXINE HCL TAB 75 MG TAB PO SCH ×2 (08:55→19:55)
[2020-04-16] MEDS: CLOPIDOGREL 75 MG TAB PO SCH (08:55)
[2020-04-16] MEDS: cefTRIAXone SODIUM 1 GM in SODIUM CHL 0.9% 50ML MIN-BAG+ 50 ML IVPB SCH (08:56)
[2020-04-16] MEDS: LEVALBUTEROL NEBS 1.25 MG/3 ML VIAL NEB SCH ×4 (09:12→20:17)
[2020-04-16] MEDS ORDERED: POTASSIUM CHLORIDE 20 MEQ TAB PO ONE (09:29)
[2020-04-16] MEDS: FUROSEMIDE 40 MG TAB PO SCH ×2 (09:35→19:57)
[2020-04-16] MEDS ORDERED: POTASSIUM CHLORIDE 20 MEQ TAB ONE (09:37)
[2020-04-16] MEDS: AZITHROMYCIN IV 500 MG in SODIUM CHLORIDE 0.9% 250ML 250 ML IVPB SCH (12:25)
[2020-04-16] MEDS: ACETAMINOPHEN 325 MG TAB PO PRN ×2 (13:28→19:55)
--- NOTE | 2020-04-16 16:49 | PN ---
SUPERVISING PHYSICIAN: Diogenes Ford MD DATE: 04/16/20 SUBJECTIVE: The patient is resting in bed. I tried to wake her up, she opened her eyes and told me to get out of her room and leave her alone. She didn't show to be tachypneic. She showed normal respirations but she refused to answer my questions. OBJECTIVE: VITAL SIGNS: Temperature 97.5, heart rate 94, blood pressure 103/68, respiratory rate 20, O2 saturation 97% on 2 liters nasal cannula. GENERAL: The patient looks to be resting comfortably, in no distress. RESPIRATORY: Lung sounds fairly clear to auscultation. No obvious rhonchi, rales, or wheezes. CARDIAC: Regular rate and rhythm. ABDOMEN: Soft, non-tender, positive bowel sounds. EXTREMITIES: No cyanosis, clubbing, or edema. NEUROLOGIC: She refuses to answer my questions but she does not show any obvious deficits, she is moving all extremities ad enedelia and is asking me to leave her room and leave her alone. LABORATORY: White count 7,900, hemoglobin 11.8, hematocrit 36.1, platelet count 329,00, differential shows to be without a left shift today. Chemistries showing potassium of 3.2, otherwise within normal limits. Anion gap was showing elevation at 18.2 with BUN 14, creatinine 1.07. Blood sugars ranging between 95 and 143. Calcium and magnesium normal. MICROBIOLOGY: Final urine culture did show a pansensitive E. coli. Blood cultures negative after 5 days. RADIOLOGY: No repeat radiographic studies. ASSESSMENT: 1. Altered mental status, etiology unknown, with periods of tachypnea and pursed lip breathing, as well as alternating periods of confusion and then lucidity. 2. Pneumonia, possibly viral but negative for COVID. 3. Urinary tract infection, Escherichia coli pansensitive and presently on ceftriaxone. 4. Undiagnosed Alzheimer's dementia. 5. Diabetes mellitus, type 2. 6. Hypertension. 7. Gastroesophageal reflux disease. 8. Lymphoma, unknown type. 9. Depression. 10. Previous myocardial infarction with stent placement. 11. Same-level fall without any acute injury on exam on radiology studies PLAN: We will continue present plan of care. I did talk to her son for a length of time and he is okay with referral to [facility] which is pending. We will continue with physical therapy and follow labs as needed. Until we can transition patient to outpatient management, we will continue to monitor and treat as needed. [facility][id number] [facility]
[2020-04-16] MEDS: SIMVASTATIN 20 MG TAB PO SCH (19:55)
[2020-04-16] MEDS: ENOXAPARIN SODIUM 40 MG/0.4 ML SYG SUBCU SCH (19:57)
[2020-04-17] MEDS: IV SET AND CAP CHANGE INJ INJ SCH (06:10)
[2020-04-17] MEDS: PANTOPRAZOLE SODIUM IV 40 MG VIAL IV SCH (06:10)
[2020-04-17] MEDS: INSULIN LISPRO 100 UNITS/ML PEN SUBCU SCH ×2 (06:59→11:43)
[2020-04-17] MEDS: CARVEDILOL 3.125 MG TAB PO SCH (08:40)
[2020-04-17] MEDS: CLOPIDOGREL 75 MG TAB PO SCH (08:40)
[2020-04-17] MEDS: FUROSEMIDE 40 MG TAB PO SCH (08:41)
[2020-04-17] MEDS: ARIPiprazole 5 MG TAB PO SCH (08:41)
[2020-04-17] MEDS: VENLAFAXINE HCL TAB 75 MG TAB PO SCH (08:42)
[2020-04-17] MEDS: cefTRIAXone SODIUM 1 GM in SODIUM CHL 0.9% 50ML MIN-BAG+ 50 ML IVPB SCH (08:42)
[2020-04-17] MEDS ORDERED: POTASSIUM CHLORIDE 20 MEQ TAB PO SCH (09:00)
[2020-04-17] MEDS: LEVALBUTEROL NEBS 1.25 MG/3 ML VIAL NEB SCH ×2 (09:17→13:11)
[2020-04-17] MEDS: ACETAMINOPHEN 325 MG TAB PO PRN (09:30)
[2020-04-17] MEDS: AZITHROMYCIN IV 500 MG in SODIUM CHLORIDE 0.9% 250ML 250 ML IVPB SCH (11:55)
[2020-04-17 16:19] VITALS: BP 101/68; TEMP 97.8; O2SAT 92
--- NOTE | 2020-04-23 10:02 | DS ---
SUPERVISING PHYSICIAN: Diogenes Ford MD ADMISSION DIAGNOSIS: 1. Urinary tract infection, cultures pending. 2. Pneumonia, possibly viral but negative for COVID. 3. Altered mental status, etiology unknown, possibly due to polypharmacy versus metabolic secondary to underlying infectious process with urinary tract infection and pneumonia. 4. Same-level fall without any acute injury on exam on radiology studies. 5. Diabetes mellitus type 2. 6. Hypertension. 7. Gastroesophageal reflux disease. 8. Lymphoma, unknown type. 9. Depression. 10. Previous myocardial infarction with stent placement. DISCHARGE DIAGNOSIS: 1. Altered mental status, back to baseline levels, etiology likely metabolic encephalopathy. 2. Pneumonia, possibly viral but negative for COVID. 3. Urinary tract infection, Escherichia coli pansensitive and presently on ceftriaxone. 4. Undiagnosed Alzheimer's dementia. 5. Diabetes mellitus, type 2. 6. Hypertension. 7. Gastroesophageal reflux disease. 8. Lymphoma, unknown type. 9. Depression. 10. Previous myocardial infarction with stent placement. 11. Same-level fall without any acute injury on exam on radiology studies REASON FOR HOSPITALIZATION: Ms. Bone is a 79 year-old female patient who presented to the Emergency Room with complaint of a fall. The patient apparently lives with her son at home and in the Emergency Room she reported that she had fallen 24 hours previously while transferring from her wheelchair to a toilet. 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 Her son reports that when the patient fell he was unable to get her up at which time he called 911. It is still unclear whether or not that was the initial fall or if she had a fall the previous day because the patient is a very poor historian and at time of admission to the medical/surgical floor, the patient's son was not present. The patient is mildly confused but denies any loss of consciousness, she does feel she may have bumped her head at some point. She was not complaining of any specific problems other than just generalized weakness. Initial workup in the Emergency Room and her labs showed she had a normal white count of 8,800 without a left shift. Hemoglobin was normal at 12.8 with 39.0 hematocrit. Platelet count was at 421,000. Chemistries showed normal sodium, potassium at 3.4, carbon dioxide 28, anion gap was normal. BUN a little low at 22, creatinine 1.24. Glucose on admission was 106, lactic acid 1.3, calcium and magnesium normal. Liver functions were was negative except for an elevated alkaline phosphatase at 133. Troponin less than 0.02. Urinalysis did show positive nitrites with small amount of leukocyte esterase. Microscopic revealed 0 RBCs with 30 to 40 WBC. 3 to 5 epithelials, 1+ bacteria. Toxicology screen showed she was positive for benzodiazepines, negative for any significant alcohol or salicylates. Urine culture was sent, she was swabbed for COVID and found to be negative. Blood cultures were collected and she was started on antibiotic coverage with ceftriaxone initially in the Emergency Room. A chest x-ray did reveal bilateral interstitial densities that were seen throughout both lung flowers raising the possibility of interstitial viral pneumonia per radiology interpretation. A 12-lead EKG shows normal sinus rhythm at 79 [id number]. No significant T-waves or T-wave inversions to indicate acute ischemia and essentially unchanged when compared to EKG August 11, 2017. Review of her mediations that were provided showed she may be having some issues with polypharmacy as she was on Valium, Gabapentin, Tramadol, Ambien and Robaxin. Her son reported that he does control her medications. Given the patient's weakness, confusion, concerning findings on x-ray for pneumonia with underlying urinary tract infection with concerns for some confusion related to infectious process, the patient is going to be placed in observation for continual neurological monitoring and further evaluation. She was placed in observation in stable condition. LABORATORY: White count on discharge was 7,900, hemoglobin 11.8, hematocrit 36.1, platelet count 329,000. Differential was without a left shift. Chemistries prior to discharge electrolytes showed just a mildly low potassium of 3.2, creatinine 1.07. Blood sugars ranged between 95 and 173. Calcium and magnesium normal. Liver functions all within normal limits. Urinalysis initially showed positive nitrites with small amount of leukocyte esterase, 0 RBCs, 30 to 40 WBCs, 3 to 5 epithelials and 1+ bacteria. Toxicology screen was positive for benzodiazepine. MICROBIOLOGY: Urine culture did show pansensitive E. coli. Respiratory panel was negative for COVID as well as all other viral and bacterial targets. Blood cultures were negative after 5 days. RADIOLOGY: She had initial cervical spine CT without any acute findings. Initial chest x-ray on admission showed interval development of some interstitial densities throughout both lung flowers, possible interstitial viral pneumonia. She had multiple followup x-rays. Final chest x-ray on 04/15/20 showed developing infiltrate with air bronchograms in the right lung base which could represent bacterial pneumonia. Please see all those reports for details. She also had a CT of the abdomen and pelvis which showed no acute intraabdominal or pelvis processes. Please see that report for details. Brain MRI was also completed which showed no subacute or acute findings. 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 Please see that full report for details. EK-lead EKG showed normal sinus rhythm at [address] or T-wave changes to indicate acute ischemia or acute coronary syndrome. HOSPITAL COURSE: Ms. Bone was admitted for confusion, underlying urinary tract infection and pneumonia. She was started on antibiotic coverage with azithromycin and Rocephin. It was also noted after review of her medical records that she was on multiple medications that could cause alteration of her mental status. Therefore, those were held through the hospitalization. Urine culture did show E. coli that was pansensitive. She was clinically responding to treatment. Mentally, on the day of discharge, she was back to her normal mental levels. Given her state of weakness and current condition, it was felt best course of discharge was to discharge to snf facility for ongoing treatment and management of medications until she could be safely discharged home. Vital signs on discharge showed temperature 97.8, pulse 93, blood pressure 101/68, respirations 21, saturation 97% on nasal cannula at 2 liters. PLAN: Ms. Bone was discharged to be admitted to snf facility at [facility]. Activity: Physical therapy evaluation and treatment. Diet: Nutritional consultation with diet to follow. Medications: As per medical administration record. Insulin as per medical administration record protocol to manage blood sugars a.c. and h.s. Followup with primary care provider, Chris Alonso, or institutional preferences. Oxygen nasal cannula at 2 liters to keep her SPO2 greater than 92% and titrate to room air as tolerated. Respiratory services were as per institution protocol. She was to return to the Emergency Room should she have any concerning symptoms or need for further care as per institution protocol. Medications prescribed at discharge included: 1. Potassium chloride 20 mEq daily, #30, no refills. 2. Cefdinir 300 mg twice daily, #28, no refills. 3. Tylenol 650 mg q.6h. as needed for fevers, #90, no refills. DISPOSITION: The patient was discharged to [facility]. CONDITION ON DISCHARGE: Stable and improved. #[id number] [facility]
== END 2020-04-17 16:30 | DRG 193 ==
LOC: ER 18:47 → OBSVTOIN 23:00 → MS 23:00
PROVIDERS: ADMIT Nurse Practitioner Family; ATTEND Nurse Practitioner Family
PROC: BW211ZZ Computerized Tomography (CT Scan) of Abdomen and Pelvis using Low Osmolar Contrast (ICD-10-PCS; principal; 2020-04-11)
DX: J12.9 Viral pneumonia, unspecified (principal); G93.41 Metabolic encephalopathy; N39.0 Urinary tract infection, site not specified; C85.90 Non-Hodgkin lymphoma, unspecified, unspecified site; B96.21 Shiga toxin-producing Escherichia coli [E. coli] [STEC] O157 as the cause of diseases classified elsewhere; G30.9 Alzheimer's disease, unspecified; F02.80 Dementia in other diseases classified elsewhere, unspecified severity, without behavioral disturbance, psychotic disturbance, mood disturbance, and anxiety; E11.9 Type 2 diabetes mellitus without complications; I10 Essential (primary) hypertension; K21.9 Gastro-esophageal reflux disease without esophagitis; F32.9 Major depressive disorder, single episode, unspecified; I25.2 Old myocardial infarction; Z95.5 Presence of coronary angioplasty implant and graft; Z89.612 Acquired absence of left leg above knee; Z79.4 Long term (current) use of insulin; Z79.891 Long term (current) use of opiate analgesic; Z79.02 Long term (current) use of antithrombotics/antiplatelets; Z79.899 Other long term (current) drug therapy; W19.XXXA Unspecified fall, initial encounter; Y92.002 Bathroom of unspecified non-institutional (private) residence as the place of occurrence of the external cause; E66.9 Obesity, unspecified; Z68.29 Body mass index [BMI] 29.0-29.9, adult